=== PATIENT | male | born 1940 | race Caucasian/White ===

== ENCOUNTER 2018-11-17 10:49 | Emergency (ER) | payer OTHER ==
[~2018-11-17] VITALS: Ht 165.1 cm; Wt 77.1 kg
[~2018-11-17 10:49] MED LIST: CLEOCIN HCL300 MG PO; MOTRIN600 MG PO; ULTRACET PO
[2018-11-17] MEDS ORDERED: ENALAPRIL MALEA20 MG (11:01)
== END 2018-11-17 11:47 | disposition home or self-care (01) ==
LOC: ER 10:49
DX: H10.13 Acute atopic conjunctivitis, bilateral (principal)

== ENCOUNTER 2019-03-06 08:44 | Emergency (ER) | payer OTHER ==
[~2019-03-06] VITALS: Ht 165.1 cm; Wt 79.4 kg
[~2019-03-06 08:44] MED LIST changes: +ENALAPRIL MALEA20 MG
[2019-03-06] MEDS ORDERED: LIPITOR20 MG (08:53)
[2019-03-06] MEDS ORDERED: ZESTRIL20 MG PO (10:52)
== END 2019-03-06 11:30 | disposition home or self-care (01) ==
LOC: ER 08:44
DX: B02.9 Zoster without complications (principal)

== ENCOUNTER 2021-10-24 21:02 | Inpatient (IN) | payer OTHER ==
[~2021-10-24] VITALS: Ht 165.1 cm; Wt 80.7 kg
[~2021-10-24 21:02] MED LIST changes: +LIPITOR20 MG; +ZESTRIL20 MG PO
[2021-10-24] MEDS ORDERED: ZESTRIL20 MG (21:29)
== END 2021-10-28 20:09 | disposition home or self-care (01) | DRG 641 ==
LOC: ER 21:02 → MEDI 10-25 02:06
PROVIDERS: ADMIT Internal Medicine; ATTEND Internal Medicine
PROC: BW21ZZZ Computerized Tomography (CT Scan) of Abdomen and Pelvis (ICD-10-PCS; principal; 2021-10-25)
DX: E86.0 Dehydration (principal); N17.8 Other acute kidney failure; R10.13 Epigastric pain; D72.828 Other elevated white blood cell count; E87.8 Other disorders of electrolyte and fluid balance, not elsewhere classified; I10 Essential (primary) hypertension; Z20.822 Contact with and (suspected) exposure to COVID-19